=== PATIENT | male | born 1960 | race Caucasian/White ===

== ENCOUNTER 2019-10-27 11:37 | Emergency (ER) | payer SELFPAY ==
[~2019-10-27 11:37] MED LIST: Iopamidol 370 76% 125 ML VIAL FS ONE; Sodium Chloride 0.9% 100 ML BAG ONE
[2019-10-27] MEDS ORDERED: niCARdipine 25 MG/10 ML VIAL ONE (11:49)
[2019-10-27] MEDS ORDERED: Aspirin Chewable 81 MG TAB ONE (11:54)
[2019-10-27 12:09] LABS: #Basophils 0.1 thou/uL (0.0-0.2); #Eosinphils 0.2 thou/uL (0.0-0.7); #Lymphocytes 1.4 thou/uL (1.20-3.40); #Monocytes 0.5 thou/uL (0.11-0.59); #Neutrophils 5.9 thou/uL (1.40-6.50); %Basophils 0.8 % (0.0-1.0); %Eosinophils 1.9 % (0.0-10.0); %Lymphocytes 17.9 % (21.0-51.0); %Monocytes 6.1 % (0.0-10.0); %Neutrophils 73.4 % (42.0-75.0); Hemoglobin 15.6 g/dL (14.0-18.0); Mean Corpuscular HGB CONC 31.8 g/dL (32.0-36.0); Mean Corpuscular Hemoglobin 30.8 pg (27.0-31.0); Mean Corpuscular Volume 96.7 fL (78.0-98.0); Mean Platelet Volume 6.1 fL (7.4-10.4); Platelet Count 376 thou/uL (130-400); RBC Distribution Width 10.7 % (11.5-14.5); Red Blood Cell (RBC) Count 5.08 mill/uL (4.70-6.10)
[2019-10-27 12:10] LABS: INR-International Normal Ratio 0.9; PTT 24.7 SEC (22.9-36.1)
--- NOTE | 2019-10-27 12:17 | CT ---
EXAM: CT angiogram brain with IV contrast and three-dimensional reconstructions PROVIDED CLINICAL HISTORY: Stroke COMPARISON: 10/27/2019 CT brain without contrast FINDINGS: The visualized portions of the great vessels of the neck demonstrate no significant stenosis. Atheros clerotic calcified plaque involving both carotid bulbs and proximal most internal carotid arteries are noted. There is no evidence for focal vessel stenosis, branch occlusion or aneurysm involving the intracrani al circulation. Left maxillary antrostomy changes are demonstrated with partial opacification of the left maxillary s inus. IMPRESSION: Normal CTA brain.
--- NOTE | 2019-10-27 12:18 | RAD ---
EXAM: Portable chest PROVIDED CLINICAL HISTORY: CVA COMPARISON: 08/26/2015 FINDINGS: Cardiac silhouette appears enlarged, which may be least partially on the basis of portable technique. No focal consolidation, pleural fluid or pneumothorax evident. IMPRESSION: No evidence for an acute cardiopulmonary process.
[2019-10-27 12:20] LABS: Acetaminophen Less than 6.0 mcg/mL (10.0-30.0); Alcohol Less than 10 mg/dL (Less than 10); Salicylate Less than 8.0 mg/dL (15.0-30.0)
[2019-10-27 12:22] LABS: ALT (SGPT) 28 U/L (8-55); AST (SGOT) 18 U/L (5-34); Albumin 4.5 g/dL (3.5-5.0); Alkaline Phosphatase 61 U/L (40-110); Anion Gap 14 mmol/L (10-20); BUN (Urea Nitrogen) 21 mg/dL (8.4-25.7); Bilirubin, Total 0.6 mg/dL (0.2-1.2); CK (CPK) 276 U/L (30-200); Calc. Creatinine Clearance 0 mL/min (70-130); Calcium 9.4 mg/dL (7.8-10.44); Carbon Dioxide 20 mmol/L (22-29); Chloride 109 mmol/L (98-107); Estimated GFR-MDRD 67; Globulin 3.2 g/dL (2.4-3.5); Glucose 97 mg/dL (70-105); Protein, Total 7.7 g/dL (6.0-8.3); Sodium 139 mmol/L (136-145); Troponin I 0.012 ng/mL (< 0.028)
[2019-10-27 12:23] LABS: CKMB 10.2 ng/mL (0-6.6)
--- NOTE | 2019-10-27 12:26 | CT ---
CT HEAD WITHOUT CONTRAST: HISTORY: Altered mental status. TIA. COMPARISON: None. FINDINGS: There is no evidence of acute intracranial hemorrhage or infarct. 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 Mild chronic ischemic small vessel disease throughout the periventricular whi te matter of each cerebral hemisphere. There is no mass effect or shift of midline structures. The vi sualized paranasal sinuses remain well aerated. IMPRESSION: 1. No acute intracranial abnormalities are apparent. 2. Evidence of chronic ischemic small vessel disease. POS: BST
[2019-10-27 12:27] LABS: Potassium 4.3 mmol/L (3.5-5.1)
[2019-10-27 12:28] LABS: Amphetamine Not Detected (NotDetected); Barbiturates Screen Not Detected (NotDetected); Benzodiazepine Screen Not Detected (NotDetected); Cocaine Metabolite Screen Not Detected (NotDetected); Medtox Control Line Valid? VALID (VALID); Methadone Not Detected (NotDetected); Methamphetamine Not Detected (NotDetected); Opiate Screen Not Detected (NotDetected); Oxycodone Screen Not Detected (NotDetected); Phencyclidine (PCP) Not Detected (NotDetected); THC/Cannabinoid Screen Not Detected (NotDetected); Tricyclic Screen Not Detected (NotDetected)
[2019-10-27 12:32] LABS: Bilirubin Negative (Negative); Blood, Urine Negative (Negative); Clarity Clear (Clear); Glucose, Urine (Dipstick) Negative (Negative); Leukocyte Negative (Negative); Nitrite Negative (Negative); Protein, Urine (Dipstick) Negative (Neg-Trace); Urobilinogen 0.2 mg/dL (Less than 2)
== END 2019-10-27 14:55 | disposition short-term general hospital (02) ==
LOC: MADERS 11:37
DX: I63.9 Cerebral infarction, unspecified (principal); I16.9 Hypertensive crisis, unspecified; I10 Essential (primary) hypertension; E03.9 Hypothyroidism, unspecified; Z79.899 Other long term (current) drug therapy
CPT/HCPCS: 36415; 70450; 70496; 71045; 80053; 80306; 80307; 81003; 82550; 82553; 83605; 84484; 85025; 85610; 85730; 93005; 96365; 96366; 99292; J3490; J7050; Q9967